=== PATIENT | male | born 1965 ===

== ENCOUNTER 2018-06-10 11:59 | Emergency (ER) | payer MEDICAID, OTHER ==
[~2018-06-10] VITALS: Ht 170.2 cm; Wt 79.4 kg
--- NOTE | 2018-06-10 13:41 | NUR ---
Patient discharged to home in stable conditon. Written and verbal after care instructions given. Patient verbalizes understanding of instructions.
== END 2018-06-10 13:42 | disposition home or self-care (01) ==
LOC: ER 12:06
DX: S62.312A Displaced fracture of base of third metacarpal bone, right hand, initial encounter for closed fracture (principal); S30.0XXA Contusion of lower back and pelvis, initial encounter; M46.96 Unspecified inflammatory spondylopathy, lumbar region; W01.0XXA Fall on same level from slipping, tripping and stumbling without subsequent striking against object, initial encounter; Y93.89 Activity, other specified; Y92.89 Other specified places as the place of occurrence of the external cause; Y99.8 Other external cause status
CPT/HCPCS: 72110; 73090; 73110; 73130; A4663